=== PATIENT | male | born 1935 | race Caucasian/White ===

== ENCOUNTER 2016-12-23 11:28 | Day surgery (SDC) | payer MEDICARE ==
[2016-12-15 08:20] LABS: BASOPHILS ABSOLUTE 0.06 10/3/uL (0.0-0.16); EOSINOPHILS 5.6 %; EOSINOPHILS ABSOLUTE 0.35 10/3/uL (0.0-0.53); HEMATOCRIT 41.6 % (40.0-51.0); HEMOGLOBIN 13.8 g/dL (13.6-17.8); LYMPHOCYTES 28.1 %; LYMPHOCYTES ABSOLUTE 1.77 10/3/uL (0.67-4.30); MEAN CORPUS HGB CONC 33.2 g/dL (32.0-36.0); MEAN CORPUSCULAR HEMOGLOB 29.2 pg (26.0-34.0); MEAN CORPUSCULAR VOLUME 87.9 fL (80-100); MEAN PLATELET VOLUME 10.1 fL (9.2-13.0); MONOCYTES 6.5 %; MONOCYTES ABSOLUTE 0.41 10/3/uL (0.21-1.20); NEUTROPHILS 58.8 %; NEUTROPHILS ABSOLUTE 3.71 10/3/uL (2.02-8.40); PLATELET COUNT 184 10/3/uL (150-400); RBC DISTRIBUTION WIDTH 13.8 % (12.0-16.0); RED CELL COUNT 4.73 10/6/uL (4.7-6.1); WHITE BLOOD CELLS 6.3 10/3/uL (4.5-10.5)
[2016-12-15 08:21] LABS: MANUAL DIFF NO %
[2016-12-15 08:34] LABS: BUN (BLOOD UREA NITROGEN) 19 MG/DL (6-23); CALCIUM, SERUM 8.7 MG/DL (8.5-10.4); CHLORIDE, SERUM 106 MMOL/L (96-112); CO2 (CARBON DIOXIDE) 25 MMOL/L (24-34); GFR AFRICAN AMERICAN 59 ML/MIN (>=60); GFR NON AFRICAN AMERICAN 51 ML/MIN (>=60); GLUCOSE, SERUM 105 MG/DL (60-99); POTASSIUM, SERUM 4.2 MMOL/L (3.5-5.3); SODIUM, SERUM 141 MMOL/L (135-148)
--- NOTE | ~2016-12-23 | OP ---
Record Of Operation [facility] [address] [place]. [address] NAME: CHUN PALACIOS JR : 33 STATUS : [facility] UNIT#: [id number] AGE: 81 ADM/REG DATE : 12/23/16 MR#: [id number] REPORT SERV DATE: 12/24/16 DICTATED BY: MEMO PRADO III DATE: 12/23/16 REPORT STATUS : Draft TRANSCRIBED BY: MODL DATE: 12/23/16 DATE OF PROCEDURE: 12/23/2016 PROCEDURES: Cystoscopy bilateral retrograde, bilateral ureteral washings, and left ureteral and kidney examination with the ureteroscope, multiple biopsies of the bladder with extensive fulguration of flat and reddened areas. PREOPERATIVE DIAGNOSES: Bladder cancer diagnosed in June, resection was done and left ureter with previous suspicious cytologies. Followup retrograde ureteroscopy and washings showed atypia, but no visible lesions. His path report on his initial findings were high- grade noninvasive cancer. He also had a re-resection with no muscle involvement, but it was thought to be T1 disease. He recently had an atypical cytology and a positive FISH study. ANESTHESIA: General. PROCEDURE IN DETAIL: Following induction of adequate general anesthesia, the patient was placed in dorsal lithotomy position, prepped and draped in a sterile fashion. The meatus had to be dilated as before to a 26-Frisian Yair sound. The cystoscope was placed. There was a mild bulbous urethral stricture which was dilated. The prostate was large with large lateral lobes and a median lobe protruding into the bladder. The bladder was examined with 30 and 70 degree lenses. High on the right lateral wall at the junction of the anterior wall were some reddened areas, flat without any papillary masses. The dome and bladder neck area were examined and were free of tumor. There had been some and just inside the bladder neck, these were not found today. There was also some reddened areas on the left lateral wall fairly high. Retrogrades were done and both showed high ureteral orifices from the BPH. The left side was relatively narrowed with some mild dilatation above the bladder. This was similar to before washings were done and the retrograde showed the calices to be sharp. No evidence of mass. I was able to do a rigid ureteroscopy almost to the UPJ. No abnormalities were noted. A flexible scope was then placed through a sheath and examined the kidney checking each calyx twice using dye for identification of the calices. The scope was removed and right renal washings were done after retrograde, which again was somewhat J hooked and somewhat tortuous, but no filling defects. Calices were sharp. No filling defects were noted in the upper tracts. Next, I looked in with the cold cup forceps. I got 4 cold cup forceps of the above-noted area. I placed a 26 sheath in and I could not get an angle which I could safely shave tumor out, so these areas were extensively biopsied. The rollerball was placed in and all erythematous areas were fulgurated. The tumors were sent as left and right lateral chi. There was very little bleeding from the prostate on this occasion, so we placed a 22-Frisian coude catheter and we will instill mitomycin in the recovery room or phase 2 as long as the urine is clear. He tolerated the procedure well. Blood loss was less than 10 mL. OB/MODL Memo Record Of Operation [address] [place]. [address] NAME: CHUN PALACIOS : 33 STATUS : [facility] UNIT#: [id number] AGE: 81 ADM/REG DATE : 12/23/16 MR#: [id number] REPORT SERV DATE: 12/24/16 DICTATED BY: MEMO PRADO III DATE: 12/23/16 REPORT STATUS : Draft TRANSCRIBED BY: MODL DATE: 12/23/16 Romero MARTINEZ M.D. / [id number] CC: Mary Gil III, M.D.
[~2016-12-23 11:28] MED LIST: ACET500CAP PO; AMB10 PO; ATRONASAL3 NAS; AVAP150 PO; BENICAR40 PO; BETAPACE80 PO; COREG3 PO; CRESTOR40 MG PO; EFUDEX TOP; ELIQUIS 5 MG TAB5 MG PO; FLECAINIDE150 MG PO; FLEX PO; FLOMAX4 PO; HAL PO; HALF81 PO; HYDROMET1 ML PO; MIRALAXPKT PO; NORCO1 TA1 PO; NORCO1 TA2 PO; PR25 PO; PROTONIX PO; PROTONIX20 MG PO; T PO; TAMBO50 PO; ULTRAM50 PO; ZYRTEC ALLGY10 MG PO
== END 2016-12-23 21:18 | disposition home or self-care (01) ==
LOC: SDC 11:28
PROVIDERS: Urology
PROC: BT14ZZZ Fluoroscopy of Kidneys, Ureters and Bladder (ICD-10-PCS; 2016-12-23)
PROC: 0TBB8ZX Excision of Bladder, Via Natural or Artificial Opening Endoscopic, Diagnostic (ICD-10-PCS; principal; 2016-12-23 13:15)
PROC: 0TJ98ZZ Inspection of Ureter, Via Natural or Artificial Opening Endoscopic (ICD-10-PCS; 2016-12-23 13:15)
DX: C67.9 Malignant neoplasm of bladder, unspecified (principal); I48.91 Unspecified atrial fibrillation; I48.92 Unspecified atrial flutter; Z88.5 Allergy status to narcotic agent; E78.00 Pure hypercholesterolemia, unspecified; M19.90 Unspecified osteoarthritis, unspecified site; K57.92 Diverticulitis of intestine, part unspecified, without perforation or abscess without bleeding; Z79.01 Long term (current) use of anticoagulants; Z79.899 Other long term (current) drug therapy; Z90.89 Acquired absence of other organs; Z96.1 Presence of intraocular lens; Z98.41 Cataract extraction status, right eye; Z98.42 Cataract extraction status, left eye; Z98.890 Other specified postprocedural states
CPT/HCPCS: 74420; 80048; 85025; 88112; 88305; 93005; A9270-GY; C1758; C1769; C1894; J2250; J2405; J2710; J3010; J9280; Q9967

== ENCOUNTER 2017-04-09 13:25 | Day surgery (SDC) | payer MEDICARE ==
[2017-04-06 08:59] LABS: BASOPHILS 0.6 %; BASOPHILS ABSOLUTE 0.04 10/3/uL (0.0-0.16); EOSINOPHILS 6.1 %; EOSINOPHILS ABSOLUTE 0.39 10/3/uL (0.0-0.53); HEMATOCRIT 41.5 % (40.0-51.0); HEMOGLOBIN 13.8 g/dL (13.6-17.8); IMMATURE GRANULOCYTES 0.2 %; IMMATURE GRANULOCYTES ABSOLUTE 0.01 10/3/uL (0.0-0.11); LYMPHOCYTES 25.9 %; LYMPHOCYTES ABSOLUTE 1.66 10/3/uL (0.67-4.30); MEAN CORPUS HGB CONC 33.3 g/dL (32.0-36.0); MEAN CORPUSCULAR HEMOGLOB 29.2 pg (26.0-34.0); MEAN CORPUSCULAR VOLUME 87.7 fL (80-100); MEAN PLATELET VOLUME 10.2 fL (9.2-13.0); MONOCYTES 6.2 %; NEUTROPHILS ABSOLUTE 3.92 10/3/uL (2.02-8.40); PLATELET COUNT 190 10/3/uL (150-400); RBC DISTRIBUTION WIDTH 14.7 % (12.0-16.0); RED CELL COUNT 4.73 10/6/uL (4.7-6.1); WHITE BLOOD CELLS 6.4 10/3/uL (4.5-10.5)
[2017-04-06 09:01] LABS: MANUAL DIFF NO %
[2017-04-06 09:12] LABS: BUN (BLOOD UREA NITROGEN) 19 MG/DL (6-23); CALCIUM, SERUM 8.9 MG/DL (8.5-10.4); CHLORIDE, SERUM 109 MMOL/L (96-112); CO2 (CARBON DIOXIDE) 28 MMOL/L (24-34); CREATININE 1.27 MG/DL (0.70-1.30); GFR AFRICAN AMERICAN 61 ML/MIN (>=60); GFR NON AFRICAN AMERICAN 52 ML/MIN (>=60); GLUCOSE, SERUM 92 MG/DL (60-99); POTASSIUM, SERUM 4.4 MMOL/L (3.5-5.3); SODIUM, SERUM 142 MMOL/L (135-148)
--- NOTE | ~2017-04-09 | OP ---
Record Of Operation [facility] [address] [place] [address] NAME: CHUN PALACIOS JR : 33 STATUS : REG [facility]#: [id number] AGE: 81 ADM/REG DATE : 04/09/17 MR#: [id number] REPORT SERV DATE: 04/09/17 DICTATED BY: MEMO PRADO III DATE: 04/09/17 REPORT STATUS : Draft TRANSCRIBED BY: MODL DATE: 04/09/17 DATE OF PROCEDURE: 04/09/2017 PROCEDURE: Cystoscopy, multiple bladder biopsies. PREOPERATIVE DIAGNOSIS: Bladder carcinoma with carcinoma in situ, post second induction round of BCG for persistent disease. POSTOPERATIVE DIAGNOSIS: Bladder carcinoma with carcinoma in situ, post second induction round of BCG for persistent disease. ANESTHESIA: General. SURGEON: Memo Prado M.D. DESCRIPTION OF PROCEDURE: Following induction of adequate general anesthesia, the patient was placed in dorsal lithotomy position, prepped and draped in a sterile fashion. The urethra was noted to be normal. The prostate was enlarged with a pedunculated median lobe. I did not do retrogrades, due to the bleeding from the prostate that began to develop. I got a good look in the bladder, but left side of the bladder and dome were clear. The tumor had been on the right side and there were number of reddened areas that were biopsied with cold cup forceps. Approximately 10 biopsies were taken. Hemostasis was achieved with a Bugbee electrode and a 20-Irish Talavera was inserted. He tolerated the procedure well. OB/MODL Memo Prado III, M.D. / [id number] CC: Mary Gil III, M.D.
== END 2017-04-09 20:28 | disposition home or self-care (01) ==
LOC: SDC 13:25
PROVIDERS: Urology
PROC: 0TBB8ZX Excision of Bladder, Via Natural or Artificial Opening Endoscopic, Diagnostic (ICD-10-PCS; principal; 2017-04-09 14:30)
DX: N30.81 Other cystitis with hematuria (principal); I48.91 Unspecified atrial fibrillation; I10 Essential (primary) hypertension; M19.90 Unspecified osteoarthritis, unspecified site; Z90.89 Acquired absence of other organs; G89.29 Other chronic pain; E78.00 Pure hypercholesterolemia, unspecified; Z88.5 Allergy status to narcotic agent; Z88.2 Allergy status to sulfonamides; Z98.41 Cataract extraction status, right eye; Z98.42 Cataract extraction status, left eye; Z98.890 Other specified postprocedural states
CPT/HCPCS: 80048; 85025; 88305; 93005; C1758; J2405; J3010; Q9967